=== PATIENT | female | born 1995 | race Caucasian/White ===

== ENCOUNTER 2017-09-15 21:16 | Emergency (ER) | payer MEDICAID ==
[~2017-09-15] VITALS: Ht 167.6 cm; Wt 63.5 kg
[~2017-09-15 21:16] MED LIST: ACETAMINOPHEN-1 EAC1 PO; ALBUTEROL SULF8.5 GM IH; AMITRIPTYLINE H50 M3; AMOXICILLIN 50500 MG PO; BIRTH CONTROL; CEFDINIR300 MG PO; CEPHALEXIN 500500 M3 PO; FLONASE 0.05%50 MCG NASAL; FLONASE NS; HYDROCODON-ACE1 EAC7 PO; IBUPROFEN 400400 M1 PO; IBUPROFEN 600600 M1 PO; IBUPROFEN 800800 M1 PO; IBUPROFEN 800800 MG PO; IMITREX5 MG; LIORESAL 10 MG10 MG PO; MAGNESIUM OXID400 MG PO; MAGNESIUM100 MG; NAPROSYN500 MG PO; NOHOMEMEDICATIONS; PHENAZOPYRIDIN200 M2 PO; PREDNISONE50 MG PO; PROMETHAZINE-C120 ML PO; ROBAXIN500 MG PO; SERTRALINE HCL50 MG PO; SINGULAIR 10 MG10 M1 PO; TESSALON PERLE100 MG PO; TRINATE TABLET1 TAB PO; XANAX 0.25 MG0.25 MG PO; ZOFRAN ODT4 MG PO; ZPAK PO; ZYRTEC; ZYRTEC10 M2 PO
[2017-09-15 22:15] VITALS: BP 132/68
== END 2017-09-15 22:15 | disposition home or self-care (01) ==
LOC: M.ERS 21:16
DX: S40.021A Contusion of right upper arm, initial encounter (principal); G43.909 Migraine, unspecified, not intractable, without status migrainosus; Z88.5 Allergy status to narcotic agent; W10.8XXA Fall (on) (from) other stairs and steps, initial encounter; Y93.89 Activity, other specified; Y92.89 Other specified places as the place of occurrence of the external cause; Y99.8 Other external cause status